=== PATIENT | female | born 1995 | race Caucasian/White ===

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

== ENCOUNTER → 2017-01-20 08:19 | Day surgery (SDC) | payer BC ==
[~2017-01-20 08:19] MED LIST: Buffered Lidocaine 0.9% SYRIN* 5 ML/SYR SYRINGE INTRADERM ONE; Buffered Lidocaine 0.9% SYRIN* 5 ML/SYR SYRINGE ONE; Dexamethasone IV* 4 MG/ML 1 ML (4 MG) ONE; Famotidine IV* 10 MG/ML 2 ML (20 mg) IV ONE; Famotidine IV* 10 MG/ML 2 ML (20 mg) ONE; Lidocaine 2% PF* 10 ML AMP ONE; Midazolam* 1 MG/ML 10 ML VIAL (10 MG) ONE; Ondansetron INJ* 2 MG/ML VIAL IV PRN; Ondansetron INJ* 2 MG/ML VIAL ONE; Propofol* 10 MG/ML 20 ML BTL IV PUSH ONE; fentaNYL* 50 MCG/ML 2 ML VIAL (100 MCG VIAL) IV PRN; fentaNYL* 50 MCG/ML 2 ML VIAL (100 MCG VIAL) ONE; oxyCODONE ORAL.SOLN* 5 MG/5 ML UDC ONE
[2017-01-20 12:01] VITALS: BP 115/67
--- NOTE | 2017-01-21 03:27 | OP ---
DATE OF OPERATION: 01/20/17 - [facility] DATE OF : [birth year] SURGEON: Carlo Claudio MD PRE-OP DIAGNOSIS: Chronic tonsillitis. POST-OP DIAGNOSIS: Chronic tonsillitis. OPERATIVE PROCEDURE: Tonsillectomy under general endotracheal anesthesia. COMPLICATIONS: None. DISPOSITION: Good. SPECIMENS: Left and right tonsils. BLOOD LOSS: Less than 1 mL. DESCRIPTION OF PROCEDURE: The patient was taken to the operating room, placed in the supine position on the operating room table. General anesthesia was induced and she was orotracheally intubated, turned and draped for the surgery. Candice-Melvin mouth gag was inserted, retraction was applied, it was suspended from the Pettit stand. Right tonsil was grasped, manual traction was applied. Using Bovie cautery, it was dissected along its capsule, removing it from the underlying pharyngeal musculature. Left tonsil was grasped, manual traction was applied. Again using Bovie cautery, it was dissected along its capsule, removing it from the underlying pharyngeal musculature. Hemostasis was ensured in both tonsillar fossae using the suction cautery. Orogastric tube was inserted into the stomach; stomach contents were suctioned. Candice-Melvin mouth gag was then released and removed. The patient tolerated this procedure well, no complications, transferred to the recovery room in stable condition. [id number]/[facility] #: [id number] MTDD
== END | disposition home or self-care (01) ==
LOC: OR 08:19
PROVIDERS: ATTEND Otolaryngology
DX: J35.01 Chronic tonsillitis (principal); R05 Cough
CPT/HCPCS: 81025; 88304; A9270-GY; J1100; J2001; J2250; J2405; J2704; J3010

== ENCOUNTER 2017-01-22 09:58 | Emergency (ER) | payer BC ==
[2017-01-22] MEDS ORDERED: Ondansetron INJ* 2 MG/ML VIAL IV ONE (10:48)
[2017-01-22 10:49] LABS: Hematocrit 34 % (35-47); Hemoglobin 11.2 g/dl (12.0-16.0); Mean Corpuscular HGB Conc 33 g/dl (31-36); Mean Corpuscular Hemoglobin 29 pg (27-31); Mean Corpuscular Volume 88 fL (80-97); Mean Platelet Volume 9 um3 (7.4-10.4); Red Blood Count 3.85 10^6/ul (4.0-5.4); Red Cell Distribution Width 13 % (10.5-15); White Blood Count 14.6 10^3/ul (3.5-10.8)
[2017-01-22] MEDS ORDERED: HYDROcodone/ACET. 7.5/325 LIQ* 15 ML UDC PO ONE (10:50)
[2017-01-22] MEDS ORDERED: NS 0.9% 1000 ML* 1,000 ML BOLUS SCH (11:00)
[2017-01-22 11:04] LABS: Albumin 3.6 g/dL (3.2-5.2); BUN/Creatinine Ratio 11.2 (8-20); Calcium 8.7 mg/dL (8.6-10.3); EGFR African American 105.1 (>60); EGFR Non-African American 81.7 (>60); Potassium 3.5 mmol/L (3.5-5.0); Total Bilirubin 0.3 mg/dL (0.2-1.0); Total Protein 6.6 g/dL (6.4-8.9)
--- NOTE | 2017-01-22 11:06 | CONS ---
CONSULTATION REPORT: DATE OF CONSULT: 01/22/17 BRIEF HISTORY: This 21-year-old with recent tonsillectomy on Monday for chronic tonsillitis, had been vomiting some blood at home and the family was concerned, brought her to the ED. She had vomited approximately 200 mL of bright red blood. At the time of the ER visit, she was not actively bleeding. PHYSICAL EXAMINATION: On physical examination, ear canals clear. The patient is hemodynamically stable. Oropharynx and the tonsillar fossa region did not show any active bleeding or clots. Tongue base is clear. She is perfusing well. PLAN: Plan was for observation for 3 to 4 hours, recheck after, and then we can discharge her home. [id number]/[facility] #: [id number] MEAGHAN
[2017-01-22 14:37] VITALS: BP 107/66
--- NOTE | 2017-01-22 20:22 | ED ---
Alexa Macedo Gabriel, scribed for Fabiola Randolph MD on 01/22/17 at 1027 . Throat Pain/Nasal Congestion - HPI Summary HPI Summary: This patient is a 21 year old F BIBA to [facility] accompanied by parents s/p tonsillectomy. The patient rates the pain 8/10 in severity. Patient denies diaphoresis and dyspnea. Pt had a tonsillectomy [address] Claudio with no complications. Mother states he wanted to do the tonsillectomy in part due to an unusual type of strep. Her mother reports that she was doing well the last two days with only minor pain. Around midnight last night she was hungry so she had noodles but this morning she was vomiting blood and had a 4-second LOC with some seizure activity. Her last PO intake was the noodles and some water this morning to take the oxycodone. Patient took 600mg of acetaminophen at 02:00, a teaspoon liquid oxycodone at 04:00, 600mg acetaminophen at 06:00, a teaspoon oxycodone at 08:30. At 08:50 there was an episode of hematemesis with clots described as red with yellow mucus. At this point mother called ENT and they suggested looking in the patients throat, when her mother did she reports she was not seeing any blood clots. ENT also suggested if she vomits again she should come to the hospital and 15 minutes later she was vomiting again, this is when she had seizure activity and LOC. Her mother reports shaking movements, eyes rolling back, and limpness. Her mother also states that when she regained consciousness she was shaking. EMS vitals were 89/65, pulse 70, and respiration rate of 15. Patient finished a Z pack 3 days ago. Patient states she should be getting her period this week. Two and a half years ago she had a syncopal episode with seizure activity where she fell and hit her head. Pt had about 100cc BRB in an emesis bag from ambulance ride to ED. - History of Current Complaint Chief Complaint: EDGeneral Hx Obtained From: Patient, Family/Environmental Remediation Consultant - parents Onset/Duration: Sudden Onset, Still Present Severity: Mild Associated Signs And Symptoms: Positive: Negative Cough: None Related History: T & A - Allergies/Home Medications Allergies/Adverse Reactions: Allergies Allergy/AdvReac Type Severity Reaction Status Date / Time Cephalexin Allergy Intermediate Swelling Verified 01/20/17 08:45 Of Face,Lips,& Throat Cefdinir [From Omnicef] Allergy Difficulty Verified 01/20/17 08:45 Breathing Sodium Benzoate Allergy Difficulty Verified 01/20/17 08:45 [From Omnicef] Breathing PMH/Surg Hx/FS Hx/Imm Hx Previously Healthy: Yes Endocrine/Hematology History: Denies: Hx Diabetes Cardiovascular History: Denies: Hx Hypertension, Hx Pacemaker/ICD, Other Cardiovascular Problems/ Disorders Respiratory History: Denies: Other Respiratory Problems/Disorders GI History: Denies: Other GI Disorders History: Denies: Hx Dialysis, Hx Renal Disease Musculoskeletal History: Denies: Other Musculoskeletal History Sensory History: Denies: Hx Contacts or Glasses, Hx Hearing Aid Opthamlomology History: Denies: Hx Contacts or Glasses Neurological History: Denies: Other Neuro Impairments/Disorders Psychiatric History: Reports: Hx Depression - on meds Denies: Hx Panic Disorder - Surgical History Surgery Procedure, Year, and Place: DENTAL SURGERY. Tonsillectomy 01/19/17 Hx Anesthesia Reactions: No Infectious Disease History: No Infectious Disease History: Denies: History Other Infectious Disease, Traveled Outside the [place] in Last 30 Days - Family History Known Family History: Positive: Cardiac Disease - grandfather had a pacer Family History: none - Social History Lives: With Family Alcohol Use: Weekly Alcohol Amount: 4 drinks a week Substance Use Type: Reports: None Smoking Status (MU): Never Smoked Tobacco Have You Smoked in the Last Year: No Review of Systems Negative: Fever, Skin Diaphoresis Respiratory: Negative - dyspnea Positive: Vomiting - with blood and mucus Skin: Negative Neurological: Negative Psychological: Normal All Other Systems Reviewed And Are Negative: Yes Physical Exam Triage Information Reviewed: Yes Vital Signs On Initial Exam: Initial Vitals Temp Pulse Resp BP Pulse Ox 97.9 F 69 18 93/54 100 01/22/17 10:08 01/22/17 10:08 01/22/17 10:08 01/22/17 10:08 01/22/17 10:08 Vital Signs Reviewed: Yes Appearance: Positive: Well-Nourished, Ill-Appearing - mild, Pain Distress - moderate Skin: Positive: Warm, Skin Color Reflects Adequate Perfusion Head/Face: Positive: Normal Head/Face Inspection Eyes: Positive: EOMI, Conjunctiva Clear ENT: Positive: Other - post pharynx, tonsillar fossa with mcclain area, no bright red blood, no clots. Neck: Positive: Supple, Nontender, No Lymphadenopathy Respiratory/Lung Sounds: Positive: Clear to Auscultation, Breath Sounds Present - normal Cardiovascular: Positive: RRR, Pulses are Symmetrical in both Upper and Lower Extremities Abdomen Description: Positive: Nontender, No Organomegaly, Soft Musculoskeletal: Positive: Strength/ROM Intact Neurological: Positive: Sensory/Motor Intact, Alert, Oriented to Person Place, Time, Facial Symmetry, Speech Normal Psychiatric: Positive: Normal - Joselin Coma Scale Coma Scale Total: 15 Diagnostics - Vital Signs Vital Signs Temp Pulse Resp BP Pulse Ox 01/22/17 10:08 97.9 F 74 18 93/54 100 - Laboratory Lab Results: Lab Results 01/22/17 01/22/17 01/22/17 Range/Units 10:19 10:19 10:19 WBC 14.6 H (3.5-10.8) 10^3/ul RBC 3.85 L (4.0-5.4) 10^6/ul Hgb 11.2 L (12.0-16.0) g/dl Hct 34 L (35-47) % MCV 88 (80-97) fL MCH 29 (27-31) pg MCHC 33 (31-36) g/dl RDW 13 (10.5-15) % Plt Count 200 (150-450) 10^3/ul MPV 9 (7.4-10.4) um3 Neut % (Auto) 65.5 (38-83) % Lymph % (Auto) 23.0 L (25-47) % Elbert % (Auto) 8.6 (1-9) % Eos % (Auto) 2.8 (0-6) % Baso % (Auto) 0.1 (0-2) % Absolute Neuts (auto) 9.5 H (1.5-7.7) 10^3/ul Absolute Lymphs (auto) 3.4 (1.0-4.8) 10^3/ul Absolute Monos (auto) 1.3 H (0-0.8) 10^3/ul Absolute Eos (auto) 0.4 (0-0.6) 10^3/ul Absolute Basos (auto) 0 (0-0.2) 10^3/ul Absolute Nucleated RBC 0.01 10^3/ul Nucleated RBC % 0.1 Sodium 134 (133-145) mmol/L Potassium 3.5 (3.5-5.0) mmol/L Chloride 103 (101-111) mmol/L Carbon Dioxide 24 (22-32) mmol/L Anion Gap 7 (2-11) mmol/L BUN 10 (6-24) mg/dL Creatinine 0.89 (0.51-0.95) mg/dL Est GFR ( Amer) 105.1 (>60) Est GFR (Non-Af Amer) 81.7 (>60) BUN/Creatinine Ratio 11.2 (8-20) Glucose 94 (70-100) mg/dL Calcium 8.7 (8.6-10.3) mg/dL Total Bilirubin 0.30 (0.2-1.0) mg/dL AST 15 (13-39) U/L ALT 10 (7-52) U/L Alkaline Phosphatase 62 (34-104) U/L Total Protein 6.6 (6.4-8.9) g/dL Albumin 3.6 (3.2-5.2) g/dL Globulin 3.0 (2-4) g/dL Albumin/Globulin Ratio 1.2 (1-3) Blood Type A Positive Antibody Screen Negative Result Diagrams: 01/22/17 10:19 01/22/17 10:19 Lab Statement: Any lab studies that have been ordered have been reviewed, and results considered in the medical decision making process. Re-Evaluation - Re-Evaluation First Eval Re-Evaluation Time: 10:55 Change: Improved - Patients Bp is 96/60 and temp is 98.7 no further vomiting awaiting pain medication. Patient will be observed in the ED for 3 hours. Second Eval Re-Evaluation Time: 13:05 Change: Improved - Tonsillectomy site shows no bleeding and no clots. EENT Course/Dx - Course Assessment/Plan: Test results with no significant abnormalities. In the ED course the patient was given IV fluids, Zofran, and hydrocodone. The patient was observed for 3.5 hours and is feeling better. We discussed patient care with Dr. Schmitt and they he has agreed to come see the patient. Patient will be discharged with prescription for hydrocodone and ondansetron and follow up from ENT. The patient is agreeable with this plan. - Diagnoses Provider Diagnoses: Post-tonsillectomy hemorrhage, Vomiting - Provider Notifications Discussed Care Of Patient With: Alo Schmitt Time Discussed With Above Provider: 10:49 Instructed by Provider To: Other - We discussed patient care with Dr. Schmitt and they he has agreed to come see the patient. 13:00 Dr. Schmitt suggested to perform another reevaluation to see how the patient is feeling and if she is stable send her home. Discharge - Discharge Plan Condition: Stable Disposition: HOME Prescriptions: HYDROcodone/ACET. 7.5/325 LIQ* [Lortab Elixir 7.5/325 per 15 ml *] 5 ml PO Q6H # 100 ml MDD 20ml Ondansetron ODT TAB* [Zofran 4 MG Odt TAB*] 4 mg PO Q6H PRN #20 tab.odt PRN Reason: Vomiting Patient Education Materials: Hydrocodone/Acetaminophen (By mouth) Referrals: Kendal Gallego DO [Primary Care Provider] - Additional Instructions: We have observed you for 3 1/2 hrs and you have not had further vomiting or bleeding while in the ER. Dr. Schmitt is comfortable with discharge at this time. Dr. Randolph prescribed hydrocodone with acetaminophen liquid for you to take for pain instead of the oxycodone. You may also continue plain acetaminophen and ibuprofen as directed. Dr. Randolph also prescribed ondansetron oral disintegrating tablets for nausea and vomiting. You may take this at the same time as the hydrocodone. Return to the ER if you have further vomiting, any bleeding or any new or worsening symptoms. The documentation as recorded by the Alexa joe Gabriel accurately reflects the service I personally performed and the decisions made by , Fabiola Randolph MD.
== END 2017-01-22 14:37 | disposition home or self-care (01) ==
LOC: ED 09:58
DX: J95.830 Postprocedural hemorrhage of a respiratory system organ or structure following a respiratory system procedure (principal); R11.10 Vomiting, unspecified
CPT/HCPCS: 36415; 80053; 85025; 86850; 86900; 86901; 96361; 96374; 99282; J2405

== ENCOUNTER 2017-01-25 19:40 | Day surgery (SDC) | payer BC ==
[2017-01-25] MEDS ORDERED: NS 0.9% 1000 ML* 1,000 ML IV ONE (19:51)
[2017-01-25 20:19] LABS: ABS Basophils 0 10^3/ul (0-0.2); ABS Eosinophils 0 10^3/ul (0-0.6); ABS Lymphocytes 0.6 10^3/ul (1.0-4.8); ABS Monocytes 0 10^3/ul (0-0.8); ABS Neutrophils 6.1 10^3/ul (1.5-7.7); ABS Nucleated RBC 0 10^3/ul; Eosinophil % 0.3 % (0-6); Hematocrit 39 % (35-47); Hemoglobin 13.1 g/dl (12.0-16.0); Lymphocyte % 8.7 % (25-47); Mean Corpuscular HGB Conc 34 g/dl (31-36); Mean Corpuscular Hemoglobin 29 pg (27-31); Mean Corpuscular Volume 87 fL (80-97); Mean Platelet Volume 8 um3 (7.4-10.4); Nucleated Red Blood Cells % 0; Platelet Count 246 10^3/ul (150-450); Red Blood Count 4.49 10^6/ul (4.0-5.4); Red Cell Distribution Width 13 % (10.5-15); White Blood Count 6.8 10^3/ul (3.5-10.8)
--- NOTE | 2017-01-25 20:31 | ED ---
Cal Macedo Julia, scribed for Josemanuel Lanza MD on 01/25/17 at 2000 . Throat Pain/Nasal Congestion - HPI Summary HPI Summary: This patient is a 21 year old F presenting to [facility] accompanied by parents with a chief complaint of tonsil bleeding since earlier today, s/p tonsillectomy 01/20/17. It has bleed 2 other times before this. The patient rates the pain 10/10 in severity. Symptoms aggravated and alleviated by nothing. Patient reports lightheaded dizziness. Dr. Ventura (ENT) is in the ED to evaluate the patient. - History of Current Complaint Chief Complaint: EDThroatPain Time Seen by Provider: 01/25/17 19:51 Hx Obtained From: Patient Onset/Duration: Sudden Onset, Lasting Minutes, Still Present Severity: Worse Since: - earlier today Associated Signs And Symptoms: Positive: Negative Cough: None Related History: Prior ENT Surgery - Tonsillectomy - Allergies/Home Medications Allergies/Adverse Reactions: Allergies Allergy/AdvReac Type Severity Reaction Status Date / Time Cephalexin Allergy Intermediate Swelling Verified 01/20/17 08:45 Of Face,Lips,& Throat Cefdinir [From Omnicef] Allergy Difficulty Verified 01/20/17 08:45 Breathing Sodium Benzoate Allergy Difficulty Verified 01/20/17 08:45 [From Omnicef] Breathing PMH/Surg Hx/FS Hx/Imm Hx Endocrine/Hematology History: Denies: Hx Diabetes Cardiovascular History: Denies: Hx Hypertension, Hx Pacemaker/ICD, Other Cardiovascular Problems/ Disorders Respiratory History: Denies: Other Respiratory Problems/Disorders GI History: Denies: Other GI Disorders History: Denies: Hx Dialysis, Hx Renal Disease Musculoskeletal History: Denies: Other Musculoskeletal History Sensory History: Denies: Hx Contacts or Glasses, Hx Hearing Aid Opthamlomology History: Denies: Hx Contacts or Glasses Neurological History: Denies: Other Neuro Impairments/Disorders Psychiatric History: Reports: Hx Depression - on meds Denies: Hx Panic Disorder - Surgical History Surgery Procedure, Year, and Place: DENTAL SURGERY. Tonsillectomy 01/19/17 Hx Anesthesia Reactions: No Infectious Disease History: No Infectious Disease History: Denies: History Other Infectious Disease, Traveled Outside the [place] in Last 30 Days - Family History Known Family History: Positive: Cardiac Disease - grandfather had a pacer Family History: none - Social History Alcohol Use: Weekly Alcohol Amount: 4 drinks a week Hx Substance Use: No Substance Use Type: Reports: None Hx Tobacco Use: No Smoking Status (MU): Never Smoked Tobacco Have You Smoked in the Last Year: No Review of Systems Negative: Fever Positive: Other - tonsil bleeding Neurological: Other - lightheaded dizziness. All Other Systems Reviewed And Are Negative: Yes Physical Exam - Summary Physical Exam Summary: General: Mildly ill-appearing, no pain distress Skin: warm, color reflects adequate perfusion, dry Head: normal Eyes: EOMI, EDGAR ENT: posterior pharynx with bright red blood Neck: supple, nontender Respiratory: CTA, breath sounds present Cardiovascular: RRR Abdomen: soft, nontender Bowel: present Musculoskeletal: normal, strength/ROM intact Neurological: normal, sensory/motor intact, A&O x3 Psychological: affect/mood appropriate Triage Information Reviewed: Yes Vital Signs On Initial Exam: Initial Vitals Temp Pulse Resp BP Pulse Ox 97.6 F 82 16 114/56 100 01/25/17 19:44 01/25/17 19:44 01/25/17 19:44 01/25/17 19:44 01/25/17 19:44 Vital Signs Reviewed: Yes Diagnostics - Vital Signs Vital Signs Temp Pulse Resp BP Pulse Ox 01/25/17 19:44 97.6 F 82 16 114/56 100 - Laboratory Lab Results: Lab Results 01/25/17 Range/Units 20:08 WBC 6.8 (3.5-10.8) 10^3/ul RBC 4.49 (4.0-5.4) 10^6/ul Hgb 13.1 (12.0-16.0) g/dl Hct 39 (35-47) % MCV 87 (80-97) fL MCH 29 (27-31) pg MCHC 34 (31-36) g/dl RDW 13 (10.5-15) % Plt Count 246 (150-450) 10^3/ul MPV 8 (7.4-10.4) um3 Neut % (Auto) 90.3 H (38-83) % Lymph % (Auto) 8.7 L (25-47) % [place] % (Auto) 0.6 L (1-9) % Eos % (Auto) 0.3 (0-6) % Baso % (Auto) 0.1 (0-2) % Absolute Neuts (auto) 6.1 (1.5-7.7) 10^3/ul Absolute Lymphs (auto) 0.6 L (1.0-4.8) 10^3/ul Absolute Monos (auto) 0 (0-0.8) 10^3/ul Absolute Eos (auto) 0 (0-0.6) 10^3/ul Absolute Basos (auto) 0 (0-0.2) 10^3/ul Absolute Nucleated RBC 0 10^3/ul Nucleated RBC % 0 Result Diagrams: 01/25/17 20:08 Lab Statement: Any lab studies that have been ordered have been reviewed, and results considered in the medical decision making process. EENT Course/Dx - Course Course Of Treatment: DR VENTURA SAW PATIENT IN THE ED AND TOOK HER TO THE OR. - Diagnoses Provider Diagnoses: Post-tonsillectomy hemorrhage - Provider Notifications Discussed Care Of Patient With: Donal Ventura Time Discussed With Above Provider: 19:55 Instructed by Provider To: Admit As Inpatient Discharge - Discharge Plan Condition: Stable Disposition: ADMITTED TO [facility] Referrals: Kendal Gallego DO [Primary Care Provider] - The documentation as recorded by the Cal joe Julia accurately reflects the service I personally performed and the decisions made by me, Josemanuel Lanza MD.
[2017-01-25] MEDS ORDERED: Succinylcholine* 20 MG/ML 10 ML VIAL ONE (20:38)
[2017-01-25] MEDS ORDERED: fentaNYL* 50 MCG/ML 2 ML VIAL (100 MCG VIAL) ONE ×2 (20:47→21:39)
[2017-01-25] MEDS ORDERED: DiMENhydriNATE IV* 50 MG/ML VIAL IV PUSH PRN (21:18)
[2017-01-25] MEDS ORDERED: fentaNYL* 50 MCG/ML 2 ML VIAL (100 MCG VIAL) IV PRN (21:18)
[2017-01-25] MEDS ORDERED: HYDROcodone/ACET. 7.5/325 LIQ* 15 ML UDC ONE (22:04)
[2017-01-25 22:52] VITALS: BP 126/78
--- NOTE | 2017-01-26 14:16 | OP ---
DATE OF OPERATION: 01/25/17 - [facility] DATE OF : [birth year] SURGEON: Carlo Claudio MD. ANESTHESIOLOGIST: Znae Reveles MD ANESTHESIA: General endotracheal anesthesia. PRE-OP DIAGNOSIS: Post-op tonsillectomy bleeding. POST-OP DIAGNOSIS: Post-op tonsillectomy bleeding. OPERATIVE PROCEDURE: Control of post-op tonsillectomy bleeding. COMPLICATIONS: None. DISPOSITION: Good. SPECIMENS: None. BLOOD LOSS: Less than 10 mL. DESCRIPTION OF PROCEDURE: The patient was taken to the operating room, placed in the supine position on the operating room table. General anesthesia was induced and she was orotracheally intubated, turned and draped for the surgery. Candice- Melvin mouth gag was inserted, retraction was applied, it was suspended from the Pettit stand. She had potential bleeding sites on the right side with some clot. I sucked out the clot and cauterized along the base of the tongue up in the superior fossa and midfossa where there appeared to be a little bit of bleeding. I then looked on the left side and when part of the eschar was lifted off, she had some brisk bleeding from the midpole area, which I cauterized. I cauterized the base of the tongue area where there was some clot as well. Definitive bleeding site for what was the cause of the bleeding earlier today was not found. It could have been several areas oozing. The Candice-Melvin mouth gag was released for several minutes. Retraction applied. Hemostasis was again ensured. Orogastric tube was inserted into the stomach; stomach contents were suctioned. Candice-Melvin mouth gag was then released and removed. The patient tolerated this well, no complications, transferred to the recovery room in stable condition. [id number]/[facility] #: [id number] MTDD
== END 2017-01-25 22:40 | disposition home or self-care (01) ==
LOC: ED 19:40 → OR 20:08 → ED 20:23 → OR 22:40
PROVIDERS: ATTEND Otolaryngology
DX: J95.830 Postprocedural hemorrhage of a respiratory system organ or structure following a respiratory system procedure (principal); R42 Dizziness and giddiness; Z88.1 Allergy status to other antibiotic agents
CPT/HCPCS: 36415; 84702; 85025; 96360; 99282; J0330; J3010

== ENCOUNTER 2017-04-09 15:05 | Emergency (ER) | payer BC ==
[2017-04-09 16:07] VITALS: BP 108/63
--- NOTE | 2017-04-09 16:51 | UC ---
FLU HPI - HPI Summary HPI Summary: Uri for 2 weeks but then yesterday had a sudden onset of body aches, and subjective fever with cough and sore throat - History of Current Complaint Hx Obtained From: Patient Hx Last Menstrual Period: 2 WKS AGO ?: No Onset/Duration: Sudden Onset, Lasting Days - 1, Still Present Severity Currently: Moderate Severity Initially: Moderate Pain Intensity: 6 Pain Scale Used: 0-10 Numeric Associated Signs & Symptoms: Positive: Fever, Myalgia, Cough, Sore Throat, Nasal Congestion Related Hx: Possible Flu/Infectious Exposure <Neva Givens - Last Filed: 04/09/17 17:39> <Johanna Wilhelm - Last Filed: 04/09/17 17:53> - History of Current Complaint Chief Complaint: UCGeneralIllness Stated Complaint: COLD/FLU LIKE SYMPTOMS Time Seen by Provider: 04/09/17 16:49 - Allergy/Home Medications Allergies/Adverse Reactions: Allergies Allergy/AdvReac Type Severity Reaction Status Date / Time cefdinir Allergy Difficulty Verified 04/09/17 15:57 Breathing cephalexin Allergy Swelling Verified 04/09/17 15:57 Of Face,Lips,& Throat Home Medications: Home Medications Ferrous Sulfate TAB* 325 mg PO DAILY 04/09/17 [History Confirmed 04/09/17] Fexofenadine/Pseudoephedrine [Amanda-D 24 Hour Tablet] 1 each PO BEDTIME [History Confirmed 04/09/17] PMH/Surg Hx/FS Hx/Imm Hx Previously Healthy: Yes - Surgical History Surgical History: Yes Surgery Procedure, Year, and Place: DENTAL SURGERY. Tonsillectomy 01/19/17 - Family History Known Family History: Positive: None, Cardiac Disease - grandfather had a pacer Family History: none - Social History Occupation: Student Lives: With Family Alcohol Use: Weekly Alcohol Amount: 4 drinks a week Substance Use Type: None Smoking Status (MU): Never Smoked Tobacco Have You Smoked in the Last Year: No <Neva Givens - Last Filed: 04/09/17 17:39> Review of Systems Constitutional: Fever - subjective, Chills, Fatigue Skin: Negative Eyes: Negative ENT: Sore Throat, Nasal Discharge, Sinus Congestion Respiratory: Cough Cardiovascular: Negative Gastrointestinal: Negative Genitourinary: Negative Motor: Negative Neurovascular: Negative Musculoskeletal: Arthralgia, Myalgia Neurological: Negative Psychological: Negative Is Patient Immunocompromised?: No All Other Systems Reviewed And Are Negative: Yes <Neva Givens - Last Filed: 04/09/17 17:39> Physical Exam Triage Information Reviewed: Yes Appearance: No Pain Distress, Well-Nourished, Ill-Appearing - mild Vital Signs: Initial Vital Signs Temp 97.8 F 04/09/17 16:00 Pulse 74 04/09/17 16:00 Resp 16 04/09/17 16:00 BP 108/63 04/09/17 16:00 Pulse Ox 98 04/09/17 16:00 Vital Signs Reviewed: Yes Eye Exam: Normal Eyes: Positive: Conjunctiva Clear ENT Exam: Normal ENT: Positive: Normal ENT inspection, Hearing grossly normal, Pharynx normal, Nasal congestion, TMs normal, Uvula midline. Negative: Nasal drainage, TM bulging, Tonsillar swelling, Tonsillar exudate, Trismus, Muffled voice, Hoarse voice, Dental tenderness, Sinus tenderness Dental Exam: Normal Neck exam: Normal Neck: Positive: Supple, Nontender, Enlarged Nodes @ - slight anterior cervical Respiratory Exam: Normal Respiratory: Positive: Chest non-tender, Lungs clear, Normal breath sounds, No respiratory distress, No accessory muscle use Cardiovascular Exam: Normal Cardiovascular: Positive: RRR, No Murmur, Pulses Normal, Brisk Capillary Refill Musculoskeletal Exam: Normal Musculoskeletal: Positive: Strength Intact, ROM Intact, No Edema Neurological Exam: Normal Neurological: Positive: Alert, Muscle Tone Normal Psychological Exam: Normal Skin Exam: Normal <Neva Givens - Last Filed: 04/09/17 17:39> Vital Signs: Initial Vital Signs Temp 97.8 F 04/09/17 16:00 Pulse 74 04/09/17 16:00 Resp 16 04/09/17 16:00 BP 108/63 04/09/17 16:00 Pulse Ox 98 04/09/17 16:00 <Johanna Wilhelm - Last Filed: 04/09/17 17:53> Diagnostics - Laboratory Diagnostic Studies Completed/Ordered: Influenza A/b (-), RST (-) <Neva Givens - Last Filed: 04/09/17 17:39> Flu Course/Dx - Course Course Of Treatment: Increase fluids, rest tylenol, ibuprofen for pain otc medications for symptom relief follow with [facility]cp or [facility] - Differential Dx/Diagnosis Provider Diagnoses: URI, Viral Syndrome <Neva Givens - Last Filed: 04/09/17 17:39> Discharge <Neva Givens - Last Filed: 04/09/17 17:39> <Johanna Wilhelm - Last Filed: 04/09/17 17:53> - Discharge Plan Condition: Stable Disposition: HOME Patient Education Materials: Upper Respiratory Infection (ED), Viral Syndrome ( ED) Referrals: Kendal Gallego DO [Primary Care Provider] - If Needed Attestation Statement User Type: Provider - I was available for consult. This patient was seen by the RAJENDRA. The patient was not presented to, seen by, or examined by me. Amira <Johanna Wilhelm - Last Filed: 04/09/17 17:53>
== END 2017-04-09 17:47 | disposition home or self-care (01) ==
LOC: UCCORT 15:05
DX: J06.9 Acute upper respiratory infection, unspecified (principal); B34.9 Viral infection, unspecified; Z88.1 Allergy status to other antibiotic agents
CPT/HCPCS: 87502; 87651; 99211; G0463